=== PATIENT | female | born 1990 | race Caucasian/White ===

== ENCOUNTER 2021-07-17 22:05 | Emergency (ER) | payer OTHER ==
[~2021-07-17] VITALS: Ht 162.6 cm; Wt 65.9 kg
[2021-07-17 22:34] VITALS: BP 128/79
--- NOTE | 2021-07-18 00:06 | PHYS DOC ---
Past History Additional Past Medical Histor: LYMES DISEASE, PTSD Past Surgical History: Adult General Chief Complaint Chief Complaint: COUGH HPI HPI Patient is a 31-year-old female, current smoker who presents with a complaint of intermittent cough over the last couple of weeks, nonproductive. Denies any recent traumas, travels, fevers, chest pain, shortness of breath, abdominal pain, nausea, vomiting. States she is eating and drinking normally. States he is making urine and stool normally for her. States she is a current smoker and has been smoking for about 10 years. Review of Systems Review of Systems Review of systems otherwise unremarkable except noted in HPI. Allergies Allergies Allergies Coded Allergies Type Severity Reaction Last Updated Verified No Known Drug Allergies 07/17/21 No Physical Exam Physical Exam Constitutional: Well developed, well nourished, no acute distress, non-toxic appearance. [] HENT: Normocephalic, atraumatic, bilateral external ears normal, oropharynx moist, no oral exudates, nose normal. [] Eyes:conjunctiva normal, no discharge. [] Neck: Normal range of motion, no tenderness, supple, no stridor. [] Cardiovascular:Heart rate regular rhythm, no murmur [] Lungs & Thorax: Very mild end expiratory bilateral wheeze with no rhonchi or rales, no tachypnea no increased work of breathing Abdomen: soft, no tenderness, no masses, no pulsatile masses. [] Skin: Warm, dry, no erythema, no rash. [] Extremities: No tenderness, ROM intact, no edema. [] Neurologic: Alert and oriented X 3, no focal deficits noted. [] Psychologic: Affect normal, judgement normal, mood normal. [] Current Patient Data Vital Signs Vital Signs Date Time Temp Pulse Resp B/P (MAP) Pulse Ox O2 Delivery O2 Flow Rate FiO2 07/17/21 22:34 98.2 88 18 128/79 98 Room Air Lab Results Laboratory Tests Test 07/17/21 22:44 POC Urine HCG, Qualitative hcg negative (Negative) EKG EKG [] Radiology/Procedures Radiology/Procedures [] Heart Score C/O Chest Pain: No Risk Factors: Risk Factors: DM, Current or recent (<one month) smoker, HTN, HLP, family history of CAD, obesity. Risk Scores: Risk Factors: DM, Current or recent (<one month) smoker, HTN, HLP, family history of CAD, obesity. Course & Med Decision Making Course & Med Decision Making Patient is a 31-year-old female presents with intermittent cough Vital signs not concerning. Physical exam noted above. Patient denies need for pain or nausea medicine. Given steroids and breathing treatment for wheeze. Discussed findings with patient. Advised to cease cigarette smoking and explained risks. Advised to follow-up with primary care physician and gave resources for local primary care physicians as her and her daughter just moved here. Gave return precautions to the ED. Family grateful, verbalized understanding and agreed with plan of discharge. [] Dragon Disclaimer Dragon Disclaimer This electronic medical record was generated, in whole or in part, using a voice recognition dictation system. Departure Departure: Impression: Primary Impression: Cough Additional Impression: Wheeze Disposition: 01 HOME / SELF CARE / HOMELESS Condition: GOOD Referrals: PCP,UNKNOWN (PCP) BARRETT RODAS Patient Instructions: Cough, Adult Additional Instructions: Thank you for coming into the emergency department tonight and allowing us to take care of you. Please read the attached information above. Please use your albuterol as we discussed and demonstrated. Please call a primary care physi chun first thing the morning to set up/establish care and set up a follow-up appointment as soon as possible. Please consider cessation of cigarette smoking for the reasons we discussed. Please come back to the ED with new or concerning symptoms as discussed. Problem Qualifiers JACQUELINE TOMLNI MD Jul 18, 2021 00:06
[2021-07-18] MEDS: ALBUTEROL SULFATE 8GM INHALER. INH ONE (00:26)
[2021-07-18] MEDS: DEXAMETHASONE 4 MG TABLET PO ONE (00:26)
== END 2021-07-18 00:30 | disposition home or self-care (01) ==
LOC: ER 22:05
DX: R06.2 Wheezing (principal); F17.200 Nicotine dependence, unspecified, uncomplicated
CPT/HCPCS: 81025; 94640; 99283; J8540; 94664

== ENCOUNTER 2021-10-10 23:40 | Emergency (ER) | payer OTHER ==
[~2021-10-10] VITALS: Ht 162.6 cm; Wt 65.3 kg
[2021-10-11 00:10] VITALS: BP 109/71
--- NOTE | 2021-10-11 00:53 | PHYS DOC ---
Past History Additional Past Medical Histor: LYMES DISEASE, PTSD Past Surgical History: General Adult EDM: Chief Complaint: MULTIPLE COMPLAINTS HPI: HPI: 28-year-old female presents with URI symptoms. Patient has had sore throat, postnasal drip, intermittent cough, body aches, fatigue for the last 2 days. She is also concerned about some lymph node swelling in her neck. The patient has fibromyalgia at baseline and feels like her body is more inflamed and sore all over than usual. She has had some recent medication changes, but they do not correspond with the last 2 days and the symptoms. She has had some chills but has not measured a fever at home. No fever on arrival. Review of Systems: Review of Systems: Constitutional: Chills Eyes: Denies change in visual acuity HENT: Sore throat, postnasal drip. Respiratory: Intermittent cough without shortness of breath Cardiovascular: Denies chest pain or edema GI: Denies abdominal pain, nausea, vomiting, bloody stools or diarrhea : Denies dysuria Musculoskeletal: Denies back pain or joint pain Integument: Denies rash Neurologic: Denies headache, focal weakness or sensory changes Endocrine: Denies polyuria or polydipsia Lymphatic: Denies swollen glands Psychiatric: Denies depression or anxiety Allergies: Allergies: Allergies Coded Allergies Type Severity Reaction Last Updated Verified No Known Drug Allergies 07/17/21 No Physical Exam: PE: Constitutional: Well developed, well nourished, no acute distress, non-toxic appearance. [] HENT: Normocephalic, atraumatic, bilateral external ears normal, oropharynx erythematous with possible exudate on the left, nose clear drainage. [] Eyes: PERRLA, EOMI, conjunctiva normal, no discharge. [] Neck: Normal range of motion, no anterior cervical lymph nodes bilaterally, supple, no stridor. [] Cardiovascular: Heart rate regular rhythm, no murmur [] Lungs & Thorax: Bilateral breath sounds clear to auscultation [] Abdomen: Bowel sounds normal, soft, no tenderness, no masses, no pulsatile masses. [] Skin: Warm, dry, no erythema, no rash. [] Back: No tenderness, no CVA tenderness. [] Extremities: No tenderness, no cyanosis, no clubbing, ROM intact, no edema. [] Neurologic: Alert and oriented X 3, normal motor function, normal sensory function, no focal deficits noted. [] Psychologic: Affect normal, judgement normal, mood anxious. [] EKG: EKG: [] Radiology/Procedures: Radiology/Procedures: [] Impressions: EXAM: XR CHEST 1V 10/11/2021 12:56 AM CLINICAL INDICATION: Suspect Covid COMPARISON: None TECHNIQUE: AP upright view of the chest FINDINGS: The heart and mediastinum are normal. Lungs are well-expanded and clear. No consolidation, pleural effusion, or pneumothorax. Pulmonary vascularity is normal. The thoracic skeleton is intact. IMPRESSION: No acute cardiopulmonary abnormality. Electronically signed by: Camilla Browne MD (10/11/2021 1:37 AM) [facility] DICTATED AND SIGNED BY: CAMILLA BROWNE MD DATE: 10/11/21 013 CC: CLAUDIO EDWARDS DO; AMBER MCBRIDE DO ~MTH0 0 Heart Score: C/O Chest Pain: N/A Risk Factors: Risk Factors: DM, Current or recent (<one month) smoker, HTN, HLP, family history of CAD, obesity. Risk Scores: Score 0 - 3: 2.5% MACE over next 6 weeks - Discharge Home Score 4 - 6: 20.3% MACE over next 6 weeks - Admit for Clinical Observation Score 7 - 10: 72.7% MACE over next 6 weeks - Early Invasive Strategies Course & Med Decision Making: Course & Med Decision Making Pertinent Labs and Imaging studies reviewed. (See chart for details) The patient's chest x-ray is negative for acute findings. Rapid strep is negative. The patient's Covid test is pending and will come back to tomorrow. This is likely viral URI or Covid. She is stable for discharge at this time. [] Dragon Disclaimer: Dragon Disclaimer: This electronic medical record was generated, in whole or in part, using a voice recognition dictation system. Departure Departure: Impression: Primary Impression: Viral URI Disposition: HOME / SELF CARE / HOMELESS Condition: STABLE Referrals: AMBER MCBRIDE DO (PCP) Patient Instructions: Upper Respiratory Infection, Adult, [id number] CLAUDIO EDWARDS DO Oct 11, 2021 00:53
--- NOTE | 2021-10-11 01:40 | RAD ---
EXAM: XR CHEST 1V 10/11/2021 12:56 AM CLINICAL INDICATION: Suspect Covid COMPARISON: None TECHNIQUE: AP upright view of the chest FINDINGS: The heart and mediastinum are normal. Lungs are well-expanded and clear. No consolidatio n, pleural effusion, or pneumothorax. Pulmonary vascularity is normal. The thoracic skeleton is int act. IMPRESSION: No acute cardiopulmonary abnormality. Electronically signed by: Camilla Browne MD (10/11/2021 1:37 AM) [facility]
== END 2021-10-11 02:05 | disposition home or self-care (01) ==
LOC: ER 23:40
DX: J06.9 Acute upper respiratory infection, unspecified (principal)
CPT/HCPCS: 71045; 87070; 87880; 99284; C9803; U0003

== ENCOUNTER 2021-12-25 20:54 | Emergency (ER) | payer OTHER ==
[~2021-12-25] VITALS: Ht 162.6 cm; Wt 65.0 kg
--- NOTE | 2021-12-25 21:42 | PHYS DOC ---
Past History Past Medical History: Anxiety, Depression, Fibromyalgia Additional Past Medical Histor: PTSD, lyme's disease (SKYLAR KILGORE APRN) Past Surgical History: No Surgical History, (SKYLAR KILGORE APRN) Smoking: Less than 1pk/day Alcohol Use: None Drug Use: None (SKYLAR KILGORE APRN) General Adult EDM: Chief Complaint: MULTIPLE COMPLAINTS HPI: HPI: Patient is a 31-year-old female that presents today with anxiety and panic attack. Patient states today that she was at the grocery store looking at chocolate and she got a sudden sensation that her neck had no circulation and that her shoulders were tight and that she did not know what to do. She states that she has had these problems for a number of years she said she is recently moved here in June 2021 and has had some challenges in getting all of her medications restarted from her previous post she comes in today and she is very anxious and very manic and very angry about all of the situation that she has gone through. Patient says she has an appointment with a psychiatrist coming up in the next week to help regulate her psychiatric medications, she has also seen multiple physicians on post and other consultations and she is concerned that no one is finding anything wrong with her. Patient states today that she had a feeling of doom and that she was going to lose all circulation to her head and t o her heart and that she was not going to make it. Patient says she does have a cough and she has been coughing up yellow sputum patient said she smokes, she also states that she took a home COVID test which was negative. (SKYLAR KILGORE APRN) Review of Systems: Review of Systems: Constitutional: Denies fever or chills Eyes: Denies change in visual acuity HENT: Denies nasal congestion or sore throat Respiratory: Denies cough or shortness of breath Cardiovascular: Denies chest pain or edema GI: Denies abdominal pain, nausea, vomiting, bloody stools or diarrhea : Denies dysuria Musculoskeletal: Denies back pain or joint pain Integument: Denies rash Neurologic: Denies headache, focal weakness or sensory changes Endocrine: Denies polyuria or polydipsia Lymphatic: Denies swollen glands Psychiatric: Denies depression or anxiety (SKLYAR KILGORE APRN) Current Medications: Current Meds: Current Medications Medications (Trade) Dose Ordered Sig/Ambrose Start Time Stop Time Status Last Admin Dose Admin Cyclobenzaprine HCl (Flexeril) 10 mg 1X ONCE 12/25/21 21:45 12/25/21 21:46 UNV (SKYLAR KILGORE [employer]PERATOR) Allergies: Allergies: Allergies Coded Allergies Type Severity Reaction Last Updated Verified No Known Drug Allergies 07/17/21 No (SKYLAR KILGORE APRN) Physical Exam: PE: Constitutional: Well developed, well nourished, no acute distress, non-toxic appearance. [] HENT: Normocephalic, atraumatic, bilateral external ears normal, oropharynx moist, no oral exudates, nose normal. [] Eyes: PERRLA, EOMI, conjunctiva normal, no discharge. [] Neck: Normal range of motion, no tenderness, supple, no stridor. [] Cardiovascular:Heart rate regular rhythm, no murmur [] Lungs & Thorax: Bilateral breath sounds clear to auscultation [] Abdomen: Bowel sounds normal, soft, no tenderness, no masses, no pulsatile masses. [] Skin: Warm, dry, no erythema, no rash. [] Back: No tenderness, no CVA tenderness. [] Extremities: No tenderness, no cyanosis, no clubbing, ROM intact, no edema. [] Neurologic: Alert and oriented X 3, normal motor function, normal sensory function, no focal deficits noted. [] Psychologic: Affect normal, judgement normal, mood normal. [] (SKYLAR KILGORE APRN) Current Patient Data: Labs: Laboratory Tests Test 12/25/21 20:55 12/25/21 21:45 Urine Collection Type Unknown Urine Color Yellow Urine Clarity Clear Urine pH 8.5 Urine Specific [place] 1.020 Urine Protein Neg Urine Glucose (UA) Neg mg/dL Urine Ketones (Stick) Neg mg/dL Urine Blood Neg Urine Nitrite Neg Urine Bilirubin Neg Urine Urobilinogen Dipstick 0.2 mg/dL Urine Leukocyte Esterase Neg Urine RBC 0 /HPF Urine WBC 0 /HPF Urine Squamous Epithelial Cells Occ /LPF Urine Bacteria 0 /HPF Bedside Urine HCG, Qualitative hcg negative Current Medications Medications (Trade) Dose Ordered Sig/Ambrose Route PRN Reason Start Time Stop Time Status Last Admin Dose Admin Cyclobenzaprine HCl (Flexeril) 10 mg 1X ONCE PO 12/25/21 21:45 12/25/21 21:46 DC 12/25/21 21:49 Vital Signs: Vital Signs Date Time Temp Pulse Resp B/P (MAP) Pulse Ox O2 Delivery O2 Flow Rate FiO2 12/25/21 21:01 98.3 107 20 135/79 (97) 100 Room Air (SKYLAR KILGORE APRN) EKG: EKG: [] (SKYLAR KILGORE APRN) Radiology/Procedures: Radiology/Procedures: [] (SKYLAR KILGORE APRN) Heart Score: C/O Chest Pain: N/A Risk Factors: Risk Factors: DM, Current or recent (<one month) smoker, HTN, HLP, family history of CAD, obesity. Risk Scores: Score 0 - 3: 2.5% MACE over next 6 weeks - Discharge Home Score 4 - 6: 20.3% MACE over next 6 weeks - Admit for Clinical Observation Score 7 - 10: 72.7% MACE over next 6 weeks - Early Invasive Strategies (SKYLAR KILGORE APRN) Course & Med Decision Making: Course & Med Decision Making Pertinent Labs and Imaging studies reviewed. (See chart for details) After reviewing the urine and radiological results and finding no acute illnesses at this time. I will encourage the patient to follow-up with her psychiatrist as previously prescribed and take all of her medications as directed. I will write for some Flexeril to help with muscle tension in her upper back, she can take [id number] Tylenol also as needed for pain as she states she cannot take ibuprofen due to it causing panic attacks. Blood pressure is currently 131/87 (SKYLAR KILGORE APRN) Course & Med Decision Making Did not see or evaluate patient. Did not discuss patient with ROTARY DRUM TANNER. Generally agree with ROTARY DRUM TANNER's disposition per note. (JACQUELINE TOMLIN MD) [place] Disclaimer: Dragon Disclaimer: This electronic medical record was generated, in whole or in part, using a voice recognition dictation system. (SKYLAR KILGORE APRN) Departure Departure: Impression: Primary Impression: Anxiety Additional Impression: Muscle ache Disposition: HOME / SELF CARE / HOMELESS Condition: STABLE Referrals: AMBER MCBRIDE DO (PCP) Patient Instructions: Anxiety and Panic Attacks Additional Instructions: Take all your home medications as previously prescribed Follow-up with your psychiatrist next as previously scheduled Flexeril take 1 tablet every 8 hours as needed for muscle tightness in your neck and upper back Tylenol as needed for pain Scripts Cyclobenzaprine Hcl (CYCLOBENZAPRINE HCL) 10 Mg Tablet 1 TAB PO TID PRN PRN for PAIN, #20 TAB Prov: SKYLAR KILGORE APRN 12/25/21 SKYLAR KILGORE APRN Dec 25, 2021 21:42 JACQUELINE TOMLIN MD Dec 26, 2021 06:09
[2021-12-25] MEDS: CYCLOBENZAPRINE 10 MG TABLET. PO ONE (21:49)
[2021-12-25 22:06] LABS: BACTERIA,URINE 0 /HPF (0-FEW); BILIRUBIN,URINE NEG (NEG); CLARITY,URINE CLEAR; COLOR,URINE YELLOW; GLUCOSE,URINE NEG (NEG); NITRITE,URINE NEG (NEG); RBC,URINE 0 /HPF (0-2); SQUAMOUS EPITHELIAL CELL,UR OCC /LPF; UROBILINOGEN,URINE 0.2 mg/dL (0.2 mg/dL); WBC,URINE 0 /HPF (0-4)
[2021-12-25 22:15] VITALS: BP 131/74
[2021-12-25] MEDS ORDERED: CYCL10TA19 PO (22:18)
--- NOTE | 2021-12-25 23:25 | RAD ---
XR CHEST 2V History: Chest pain Comparison: 10/11/2021. Technique: PA and lateral chest radiographs. Findings: The lungs are adequately and symmectrically inflated. No airspace consolidation, pleural effusion or pneumothorax. The cardiomediastinal silhoutte and pulmonary vasculature are within normal limits. Sof t tissues and osseous structures are unremarkable. Impression: 1. No acute cardiopulmonary process. Electronically signed by: Tab Samson MD (12/25/2021 11:22 PM) [facility]
== END 2021-12-25 22:26 | disposition home or self-care (01) ==
LOC: ER 20:54
DX: F41.9 Anxiety disorder, unspecified (principal); M79.10 Myalgia, unspecified site; F32.9 Major depressive disorder, single episode, unspecified; M79.7 Fibromyalgia; F17.200 Nicotine dependence, unspecified, uncomplicated
CPT/HCPCS: 71046; 81001; 81025; 99284